=== PATIENT | female | born 1985 | race Caucasian/White ===

== ENCOUNTER 2017-07-20 12:13 | Outpatient (CLI) | payer OTHER ==
[2017-07-20] MEDS: BETAMET NA PHOS/AC(6 MG/ML) 5ML INJ IM (13:00)
[2017-07-20 14:10] LABS: ADD MAN DIFF? NO
[2017-07-20 14:13] LABS: WHITE BLOOD COUNT 8.9 10^3/ul (4.8-10.8)
[2017-07-20 14:13] LABS: BASOPHILS % 0.1 % (0.0-2.0); EOSINOPHILS % 0.3 % (0.0-7.0); HEMATOCRIT 33.3 % (37.0-47.0); HEMOGLOBIN 11.5 g/dl (12.0-16.0); LYMPHOCYTES # 1.6 10^3/ul (0.8-2.9); LYMPHOCYTES % 18.1 % (15.0-51.0); MEAN CORPUSCULAR HEMOGLOBIN 31.3 pg (29.0-33.0); MEAN CORPUSCULAR HGB CONC 34.5 g/dl (32.0-37.0); MEAN CORPUSCULAR VOLUME 90.7 fl (82.0-101.0); MONOCYTE # 0.4 10^3/ul (0.3-0.9); MONOCYTES % 4.8 % (0.0-11.0); NEUTROPHIL # 6.7 10^3/ul (1.6-7.5); NEUTROPHILS % 75.8 % (39.0-77.0); PLATELET COUNT 212 10^3/UL (140-415); RED BLOOD COUNT 3.67 10^6/ul (4.20-5.40); RED CELL DISTRIBUTION WIDTH 12.5 % (11.5-14.5)
[2017-07-20 14:25] LABS: ADD UMIC YES; UR ASCORBIC ACID 40 mg/dL (NEGATIVE); UR BACTERIA FEW /HPF (NONE SEEN); UR BILIRUBIN (Dip) NEGATIVE (NEGATIVE); UR BLOOD (Dip) NEGATIVE (NEGATIVE); UR CLARITY SLIGHTLY CLOUDY (CLEAR); UR COLOR YELLOW (YELLOW); UR GLUCOSE (Dip) NEGATIVE (NEGATIVE); UR KETONES (Dip) NEGATIVE (NEGATIVE); UR LEUKOCYTE ESTERASE (Dip) NEGATIVE Leu/ul (NEGATIVE); UR MUCUS FEW /HPF (NONE SEEN); UR NITRITE (Dip) NEGATIVE (NEGATIVE); UR RBC 2 /HPF (0-5); UR SPECIFIC GRAVITY (Dip) 1.028 (1.003-1.030); UR SQUAMOUS EPITHELIAL CELL FEW /HPF (FEW); UR TOTAL PROTEIN (Dip) 2+ mg/dl (NEGATIVE); UR UROBILINOGEN (Dip) 1+ mg/dL (NEGATIVE); UR WBC 1 /HPF (0-5)
[2017-07-20 14:38] LABS: ALANINE AMINOTRANSFERASE 23 IU/L (13-69); ALBUMIN 3.6 g/dl (3.3-4.9); ALBUMIN/GLOBULIN RATIO 1.28; ALKALINE PHOSPHATASE 53 IU/L (42-121); ANION GAP 13 (8-16); ASPARTATE AMINO TRANSFERASE 21 IU/L (15-46); BILIRUBIN,INDIRECT 0.2 mg/dl (0-1.1); BILIRUBIN,TOTAL 0.2 mg/dl (0.2-1.3); BLOOD UREA NITROGEN 7 mg/dl (7-20); CALCIUM 9.2 mg/dl (8.4-10.2); CARBON DIOXIDE 24 mmol/L (21-31); CHLORIDE 107 mmol/L (97-110); CREATININE 0.53 mg/dl (0.44-1.00); GLUCOSE 91 mg/dl (70-220); POTASSIUM 4.1 mmol/L (3.5-5.1); SODIUM 140 mmol/L (135-144); TOTAL PROTEIN 6.4 g/dl (6.1-8.1)
[2017-07-20] MEDS: INFLUENZA VIRUS VACCINE 0.5 ML (DISPENSING) IM* (16:30)
== END 2017-07-20 14:25 | disposition home or self-care (01) ==
LOC: OBT 12:13 → L-D 12:14 → OBT 18:39
DX: O13.3 Gestational [pregnancy-induced] hypertension without significant proteinuria, third trimester (principal); Z3A.30 30 weeks gestation of pregnancy
CPT/HCPCS: 76815; 76818; 80053; 81001; 85025; 90686; 96372

== ENCOUNTER 2017-07-21 13:02 | Outpatient (CLI) | payer OTHER ==
[2017-07-21] MEDS: BETAMET NA PHOS/AC(6 MG/ML) 5ML INJ IM (13:49)
== END 2017-07-21 14:20 | disposition home or self-care (01) ==
LOC: OBT 13:02 → L-D 13:03 → OBT 14:20
DX: O13.3 Gestational [pregnancy-induced] hypertension without significant proteinuria, third trimester (principal); Z3A.30 30 weeks gestation of pregnancy
CPT/HCPCS: J0702

== ENCOUNTER 2017-07-25 09:27 | Outpatient (CLI) | payer OTHER ==
[2017-07-25 10:21] LABS: ADD UMIC YES; UR ASCORBIC ACID NEGATIVE (NEGATIVE); UR BACTERIA FEW /HPF (NONE SEEN); UR BILIRUBIN (Dip) NEGATIVE (NEGATIVE); UR BLOOD (Dip) NEGATIVE (NEGATIVE); UR CLARITY SLIGHTLY CLOUDY (CLEAR); UR COLOR YELLOW (YELLOW); UR GLUCOSE (Dip) 1+ mg/dL (NEGATIVE); UR KETONES (Dip) NEGATIVE (NEGATIVE); UR LEUKOCYTE ESTERASE (Dip) NEGATIVE Leu/ul (NEGATIVE); UR NITRITE (Dip) NEGATIVE (NEGATIVE); UR RBC 1 /HPF (0-5); UR SQUAMOUS EPITHELIAL CELL FEW /HPF (FEW); UR TOTAL PROTEIN (Dip) 1+ mg/dl (NEGATIVE); UR UROBILINOGEN (Dip) NEGATIVE (NEGATIVE); UR WBC 2 /HPF (0-5)
[2017-07-25 10:38] LABS: ADD MAN DIFF? NO
[2017-07-25 10:40] LABS: WHITE BLOOD COUNT 11.4 10^3/ul (4.8-10.8)
[2017-07-25 10:41] LABS: BASOPHILS % 0.3 % (0.0-2.0); EOSINOPHILS % 0.4 % (0.0-7.0); HEMATOCRIT 33.5 % (37.0-47.0); HEMOGLOBIN 11.6 g/dl (12.0-16.0); LYMPHOCYTES % 17.5 % (15.0-51.0); MEAN CORPUSCULAR HEMOGLOBIN 31.8 pg (29.0-33.0); MEAN CORPUSCULAR HGB CONC 34.6 g/dl (32.0-37.0); MEAN CORPUSCULAR VOLUME 91.8 fl (82.0-101.0); MEAN PLATELET VOLUME 9.6 fl (7.4-10.4); MONOCYTE # 0.5 10^3/ul (0.3-0.9); MONOCYTES % 4.5 % (0.0-11.0); NEUTROPHIL # 8.6 10^3/ul (1.6-7.5); NEUTROPHILS % 75.5 % (39.0-77.0); PLATELET COUNT 210 10^3/UL (140-415); RED BLOOD COUNT 3.65 10^6/ul (4.20-5.40); RED CELL DISTRIBUTION WIDTH 12.7 % (11.5-14.5)
[2017-07-25 11:03] LABS: INR 0.99; PROTIME 13.2 Sec (11.9-14.9)
[2017-07-25 11:04] LABS: PARTIAL THROMBOPLASTIN TIME 27.6 Sec (25.0-35.0)
[2017-07-25 11:07] LABS: ALANINE AMINOTRANSFERASE 22 IU/L (13-69); ALBUMIN 3.5 g/dl (3.3-4.9); ALKALINE PHOSPHATASE 46 IU/L (42-121); ANION GAP 15 (8-16); ASPARTATE AMINO TRANSFERASE 17 IU/L (15-46); BILIRUBIN,INDIRECT 0.2 mg/dl (0-1.1); BILIRUBIN,TOTAL 0.2 mg/dl (0.2-1.3); BLOOD UREA NITROGEN 9 mg/dl (7-20); CALCIUM 9.3 mg/dl (8.4-10.2); CARBON DIOXIDE 24 mmol/L (21-31); CHLORIDE 108 mmol/L (97-110); CREATININE 0.49 mg/dl (0.44-1.00); GLUCOSE 105 mg/dl (70-220); POTASSIUM 3.8 mmol/L (3.5-5.1); SODIUM 143 mmol/L (135-144); URIC ACID 3.8 mg/dl (3.1-7.9)
== END 2017-07-25 14:50 | disposition home or self-care (01) ==
LOC: OBT 09:27 → L-D 09:27 → OBT 14:50
DX: O13.3 Gestational [pregnancy-induced] hypertension without significant proteinuria, third trimester (principal); Z3A.31 31 weeks gestation of pregnancy
CPT/HCPCS: 76818; 80053; 81001; 84560; 85025; 85384; 85610; 85730

== ENCOUNTER 2017-07-27 15:09 | Outpatient (CLI) | payer OTHER ==
[2017-07-27 16:22] LABS: URINE BLOOD (Dip) POC Trace-intact (NEGATIVE); URINE KETONES (Dip) POC 1+ (NEGATIVE); URINE LEUKOCYTE EST (Dip) POC Negative (NEGATIVE); URINE NITRITE (Dip) POC Negative (NEGATIVE); URINE TOTAL PROTEIN POC 2+ (NEGATIVE)
== END 2017-07-27 16:10 | disposition home or self-care (01) ==
LOC: OBT 15:09 → L-D 15:10 → OBT 16:10
DX: O13.3 Gestational [pregnancy-induced] hypertension without significant proteinuria, third trimester (principal); Z3A.31 31 weeks gestation of pregnancy
CPT/HCPCS: 76818; 81003

== ENCOUNTER 2017-07-29 09:09 | Outpatient (CLI) | payer OTHER ==
[2017-07-29 10:12] LABS: COLLECTION PERIOD 24 hrs
[2017-07-29 10:29] LABS: CREATININE 0.47 mg/dl (0.44-1.00)
[2017-07-29 10:53] LABS: COLLECTION PERIOD 24 hrs; CREATININE CLEARANCE 274.4 mls/min (84.0-162.0); SCRET 0.47 mg/dl (0.44-1.00); VOLUME 3000 ml/24hrs; VOLUME 3000 mls
[2017-07-29] MEDS: LACTATED RINGER'S 1,000 ML IV (11:14)
[2017-07-29] MEDS: TERBUTALINE 1 MG/ML INJ SC (11:14)
== END 2017-07-29 12:04 | disposition home or self-care (01) ==
LOC: OBT 09:09 → L-D 09:09 → OBT 12:04
DX: O16.3 Unspecified maternal hypertension, third trimester (principal); Z3A.31 31 weeks gestation of pregnancy
CPT/HCPCS: 36415; 76817; 76818; 82565; 82575; 84156

== ENCOUNTER 2017-09-06 08:47 | Inpatient (IN) | payer OTHER ==
[2017-09-06 09:58] LABS: ADD MAN DIFF? NO
[2017-09-06] MEDS ORDERED: BUTORPHANOL 2 MG INJ IV (10:00)
[2017-09-06] MEDS ORDERED: LIDOCAINE 1% (MPF) 30 ML INJ INJ (10:00)
[2017-09-06] MEDS ORDERED: MISOPROSTOL 200 MCG TAB PR ×3 (10:00→22:00)
[2017-09-06] MEDS ORDERED: CARBOPROST 250 MCG INJ IM ×3 (10:00→22:00)
[2017-09-06] MEDS ORDERED: METHYLERGONOVINE 0.2 MG INJ IM ×3 (10:00→22:00)
[2017-09-06] MEDS ORDERED: OXYTOCIN 30 UNITS/LR 500 ML IV ×5 (10:00→22:00)
[2017-09-06 10:06] LABS: BASOPHILS % 0.2 % (0.0-2.0); EOSINOPHILS % 0.4 % (0.0-7.0); HEMOGLOBIN 11.9 g/dl (12.0-16.0); LYMPHOCYTES # 1.6 10^3/ul (0.8-2.9); LYMPHOCYTES % 18.5 % (15.0-51.0); MEAN CORPUSCULAR HEMOGLOBIN 30.8 pg (29.0-33.0); MEAN CORPUSCULAR VOLUME 90.7 fl (82.0-101.0); MEAN PLATELET VOLUME 10.4 fl (7.4-10.4); MONOCYTE # 0.5 10^3/ul (0.3-0.9); MONOCYTES % 5.4 % (0.0-11.0); NEUTROPHIL # 6.3 10^3/ul (1.6-7.5); NEUTROPHILS % 74.4 % (39.0-77.0); PLATELET COUNT 223 10^3/UL (140-415); RED BLOOD COUNT 3.86 10^6/ul (4.20-5.40); RED CELL DISTRIBUTION WIDTH 12.7 % (11.5-14.5)
[2017-09-06 10:06] LABS: WHITE BLOOD COUNT 8.5 10^3/ul (4.8-10.8)
[2017-09-06] MEDS: LACTATED RINGER'S 1,000 ML IV ×4 (10:06→23:38)
[2017-09-06] MEDS: AMPICILLIN 2 GM/NS (PMX) 100 ML IV (10:14)
[2017-09-06 10:32] LABS: ALANINE AMINOTRANSFERASE 22 IU/L (13-69); ALBUMIN 3.3 g/dl (3.3-4.9); ALBUMIN/GLOBULIN RATIO 1.13; ALKALINE PHOSPHATASE 70 IU/L (42-121); ANION GAP 12 (8-16); ASPARTATE AMINO TRANSFERASE 24 IU/L (15-46); BILIRUBIN,INDIRECT 0.4 mg/dl (0-1.1); BILIRUBIN,TOTAL 0.4 mg/dl (0.2-1.3); BLOOD UREA NITROGEN 7 mg/dl (7-20); CALCIUM 9.6 mg/dl (8.4-10.2); CARBON DIOXIDE 23 mmol/L (21-31); CHLORIDE 108 mmol/L (97-110); CREATININE 0.49 mg/dl (0.44-1.00); GLUCOSE 90 mg/dl (70-220); SODIUM 139 mmol/L (135-144); TOTAL PROTEIN 6.2 g/dl (6.1-8.1); URIC ACID 5.1 mg/dl (3.1-7.9)
[2017-09-06 10:41] LABS: INR 0.98; PROTIME 13.1 Sec (11.9-14.9)
[2017-09-06 10:42] LABS: PARTIAL THROMBOPLASTIN TIME 27.4 Sec (25.0-35.0)
[2017-09-06 11:03] LABS: ADD UMIC YES; UR ASCORBIC ACID NEGATIVE (NEGATIVE); UR BILIRUBIN (Dip) NEGATIVE (NEGATIVE); UR BLOOD (Dip) NEGATIVE (NEGATIVE); UR CLARITY SLIGHTLY CLOUDY (CLEAR); UR COLOR YELLOW (YELLOW); UR GLUCOSE (Dip) NEGATIVE (NEGATIVE); UR KETONES (Dip) NEGATIVE (NEGATIVE); UR LEUKOCYTE ESTERASE (Dip) NEGATIVE Leu/ul (NEGATIVE); UR MUCUS FEW /HPF (NONE SEEN); UR NITRITE (Dip) NEGATIVE (NEGATIVE); UR RBC 1 /HPF (0-5); UR SPECIFIC GRAVITY (Dip) 1.021 (1.003-1.030); UR SQUAMOUS EPITHELIAL CELL FEW /HPF (FEW); UR TOTAL PROTEIN (Dip) 2+ mg/dl (NEGATIVE); UR UROBILINOGEN (Dip) NEGATIVE (NEGATIVE); UR WBC 1 /HPF (0-5)
[2017-09-06 11:35] LABS: HEPATITIS B SURFACE ANTIGEN NEGATIVE (NEGATIVE)
[2017-09-06] MEDS: AMPICILLIN 1 GM/NS (PMX) 50 ML IV ×3 (14:00→18:00)
[2017-09-06] MEDS ORDERED: BUPIVACAINE 0.75%/DEXT (SPINAL) 2 ML INJ (14:44)
[2017-09-06] MEDS ORDERED: morphine SULFATE/PF (10 MG/10 ML) INJ (14:45)
[2017-09-06] MEDS ORDERED: DEXAMETHASONE 4 MG/ML 1 ML INJ (14:51)
[2017-09-06] MEDS ORDERED: ONDANSETRON 4 MG INJ (14:52)
[2017-09-06 15:05] LABS: RAPID PLASMA REAGIN NONREACTIVE (NR)
[2017-09-06] MEDS ORDERED: PHENYLephrine (100 MCG/ML) 5ML SYG (16:18)
[2017-09-06] MEDS: CEFAZOLIN 2 GM/50 ML (PMX) 50 ML IV ×3 (16:20→22:12)
[2017-09-06] MEDS ORDERED: ZOLPIDEM 5 MG TAB PO (17:30)
[2017-09-06] MEDS ORDERED: DIPHENHYDRAMINE 50 MG INJ IV (17:30)
[2017-09-06] MEDS ORDERED: NALOXONE (0.4 MG/ML) INJ IV (17:30)
[2017-09-06] MEDS ORDERED: HYDROmorphONE 0.5 MG/0.5 ML SYG IV ×2 (17:30)
[2017-09-06] MEDS ORDERED: ONDANSETRON 4 MG INJ IV (17:30)
[2017-09-06] MEDS: KETOROLAC 30 MG INJ IV (18:09)
[2017-09-06] MEDS: OXYTOCIN 30 UNITS/LR 500 ML IV (18:39)
[2017-09-06] MEDS ORDERED: NA PHOSPHATE/BIPHOS 133 ML ENEMA PR (22:00)
[2017-09-06] MEDS ORDERED: LANOLIN 7 GM TUBE TOP (22:00)
[2017-09-06] MEDS: LABETALOL 100 MG TAB PO (22:13)
[2017-09-06] MEDS: CLINDAMYCIN 300 MG CAP PO (23:39)
[2017-09-07] MEDS: CEFAZOLIN 2 GM/50 ML (PMX) 50 ML IV ×2 (05:08→13:32)
[2017-09-07] MEDS: CLINDAMYCIN 300 MG CAP PO ×4 (05:08→23:33)
[2017-09-07] MEDS: KETOROLAC 30 MG INJ IV (06:28)
[2017-09-07] MEDS: LABETALOL 100 MG TAB PO ×2 (08:49→21:00)
[2017-09-07] MEDS: SENNA/DOCUSATE NA (8.6MG/50MG) TAB PO ×2 (08:49→20:58)
[2017-09-07] MEDS: LACTATED RINGER'S 1,000 ML IV ×2 (08:50→21:41)
[2017-09-07 11:08] LABS: ADD MAN DIFF? NO
[2017-09-07 11:12] LABS: WHITE BLOOD COUNT 11.4 10^3/ul (4.8-10.8)
[2017-09-07 11:12] LABS: BASOPHILS % 0.2 % (0.0-2.0); EOSINOPHILS % 0.1 % (0.0-7.0); HEMATOCRIT 31.3 % (37.0-47.0); HEMOGLOBIN 10.6 g/dl (12.0-16.0); LYMPHOCYTES # 1.9 10^3/ul (0.8-2.9); LYMPHOCYTES % 16.9 % (15.0-51.0); MEAN CORPUSCULAR HEMOGLOBIN 31.5 pg (29.0-33.0); MEAN CORPUSCULAR HGB CONC 33.9 g/dl (32.0-37.0); MEAN CORPUSCULAR VOLUME 92.9 fl (82.0-101.0); MEAN PLATELET VOLUME 9.9 fl (7.4-10.4); MONOCYTE # 0.8 10^3/ul (0.3-0.9); MONOCYTES % 6.6 % (0.0-11.0); NEUTROPHIL # 8.7 10^3/ul (1.6-7.5); NEUTROPHILS % 75.7 % (39.0-77.0); PLATELET COUNT 191 10^3/UL (140-415); RED BLOOD COUNT 3.37 10^6/ul (4.20-5.40); RED CELL DISTRIBUTION WIDTH 12.6 % (11.5-14.5)
[2017-09-07] MEDS: OXYCODONE/ACETAMINOPHEN (5/325) TAB PO ×2 (16:29→20:58)
[2017-09-07] MEDS: IBUPROFEN 800 MG TAB PO (23:26)
[2017-09-08] MEDS: OXYCODONE/ACETAMINOPHEN (5/325) TAB PO ×4 (02:46→21:51)
[2017-09-08] MEDS: LACTATED RINGER'S 1,000 ML IV (05:41)
[2017-09-08] MEDS: BISACODYL 10 MG SUPP PR ×2 (05:49)
[2017-09-08] MEDS: CLINDAMYCIN 300 MG CAP PO ×4 (05:49→23:27)
[2017-09-08] MEDS: IBUPROFEN 800 MG TAB PO ×3 (05:49→21:51)
[2017-09-08] MEDS: SENNA/DOCUSATE NA (8.6MG/50MG) TAB PO ×2 (08:20→21:51)
[2017-09-08] MEDS: HYDROCODONE/APAP (5/325) TAB PO (12:05)
[2017-09-09] MEDS: IBUPROFEN 800 MG TAB PO (05:20)
[2017-09-09] MEDS: CLINDAMYCIN 300 MG CAP PO ×2 (05:20→11:38)
[2017-09-09] MEDS: SENNA/DOCUSATE NA (8.6MG/50MG) TAB PO (09:08)
[2017-09-09] MEDS: MEASLES,MUMPS,RUBELLA VACCINE INJ SC* (09:09)
[2017-09-09] MEDS: DIPHTH/TET/ACEL PERTUSS (ADULT) 0.5 ML VIAL IM* (11:38)
== END 2017-09-09 13:00 | disposition home or self-care (01) | DRG 765 ==
LOC: L-D 08:47 → PP1 20:56
PROC: 10D00Z1 Extraction of Products of Conception, Low, Open Approach (ICD-10-PCS; principal; 2017-09-06 08:00)
PROC: 3E033VJ Introduction of Other Hormone into Peripheral Vein, Percutaneous Approach (ICD-10-PCS; 2017-09-06 08:00)
DX: O13.4 Gestational [pregnancy-induced] hypertension without significant proteinuria, complicating childbirth (principal); Z68.42 Body mass index [BMI] 45.0-49.9, adult; O99.214 Obesity complicating childbirth; E66.01 Morbid (severe) obesity due to excess calories; O32.1XX0 Maternal care for breech presentation, not applicable or unspecified; Z3A.37 37 weeks gestation of pregnancy; Z37.0 Single live birth
CPT/HCPCS: 76815; 80053; 81001; 84560; 85025; 85610; 85730; 86592; 86850; 86900; 86901; 87340; 90715; 94760; 99464

== ENCOUNTER 2017-11-25 11:59 | Emergency (ER) | payer OTHER ==
[2017-11-25] MEDS ORDERED: ONDANSETRON (ODT) 4 MG TAB ODT (13:11)
[2017-11-25] MEDS: ONDANSETRON (ODT) 4 MG TAB ODT (13:14)
== END 2017-11-25 13:20 | disposition home or self-care (01) ==
LOC: FTE 11:59
DX: H81.11 Benign paroxysmal vertigo, right ear (principal); I10 Essential (primary) hypertension; R11.0 Nausea
CPT/HCPCS: 99283; Z7502

== ENCOUNTER 2017-11-26 09:30 | Emergency (ER) | payer OTHER ==
[2017-11-26 10:51] LABS: ADD MAN DIFF? NO
[2017-11-26 10:53] LABS: BASOPHILS % 0.3 % (0.0-2.0); EOSINOPHILS % 0.4 % (0.0-7.0); HEMATOCRIT 43.8 % (37.0-47.0); HEMOGLOBIN 14.8 g/dl (12.0-16.0); LYMPHOCYTES # 2.5 10^3/ul (0.8-2.9); LYMPHOCYTES % 34.1 % (15.0-51.0); MEAN CORPUSCULAR HEMOGLOBIN 30.2 pg (29.0-33.0); MEAN CORPUSCULAR HGB CONC 33.8 g/dl (32.0-37.0); MEAN CORPUSCULAR VOLUME 89.4 fl (82.0-101.0); MEAN PLATELET VOLUME 9.5 fl (7.4-10.4); MONOCYTE # 0.4 10^3/ul (0.3-0.9); MONOCYTES % 5.4 % (0.0-11.0); NEUTROPHIL # 4.4 10^3/ul (1.6-7.5); NEUTROPHILS % 59.7 % (39.0-77.0); PLATELET COUNT 274 10^3/UL (140-415); RED CELL DISTRIBUTION WIDTH 12.5 % (11.5-14.5)
[2017-11-26 10:53] LABS: WHITE BLOOD COUNT 7.4 10^3/ul (4.8-10.8)
[2017-11-26 11:07] LABS: ADD UMIC YES; UR ASCORBIC ACID NEGATIVE (NEGATIVE); UR BACTERIA FEW /HPF (NONE SEEN); UR BILIRUBIN (Dip) NEGATIVE (NEGATIVE); UR BLOOD (Dip) NEGATIVE (NEGATIVE); UR CLARITY CLOUDY (CLEAR); UR COLOR YELLOW (YELLOW); UR GLUCOSE (Dip) NEGATIVE (NEGATIVE); UR KETONES (Dip) NEGATIVE (NEGATIVE); UR LEUKOCYTE ESTERASE (Dip) 1+ Leu/ul (NEGATIVE); UR MUCUS FEW /HPF (NONE SEEN); UR NITRITE (Dip) NEGATIVE (NEGATIVE); UR RBC 3 /HPF (0-5); UR SPECIFIC GRAVITY (Dip) 1.028 (1.003-1.030); UR SQUAMOUS EPITHELIAL CELL MODERATE /HPF (FEW); UR TOTAL PROTEIN (Dip) 2+ mg/dl (NEGATIVE); UR UROBILINOGEN (Dip) NEGATIVE (NEGATIVE); UR WBC 7 /HPF (0-5)
[2017-11-26 11:16] LABS: ALANINE AMINOTRANSFERASE 24 IU/L (13-69); ALBUMIN 4.6 g/dl (3.3-4.9); ALBUMIN/GLOBULIN RATIO 1.48; ALKALINE PHOSPHATASE 54 IU/L (42-121); ANION GAP 12 (8-16); ASPARTATE AMINO TRANSFERASE 21 IU/L (15-46); BILIRUBIN,INDIRECT 1.2 mg/dl (0-1.1); BILIRUBIN,TOTAL 1.2 mg/dl (0.2-1.3); BLOOD UREA NITROGEN 10 mg/dl (7-20); CALCIUM 9.3 mg/dl (8.4-10.2); CARBON DIOXIDE 24 mmol/L (21-31); CHLORIDE 110 mmol/L (97-110); CREATININE 0.76 mg/dl (0.44-1.00); GLUCOSE 104 mg/dl (70-220); POTASSIUM 4.2 mmol/L (3.5-5.1); SODIUM 142 mmol/L (135-144); TOTAL PROTEIN 7.7 g/dl (6.1-8.1)
== END 2017-11-26 12:44 | disposition home or self-care (01) ==
LOC: FTE 09:30
DX: N30.00 Acute cystitis without hematuria (principal)
CPT/HCPCS: 36415; 70450; 80053; 81001; 81025; 85025; 99284-25

== ENCOUNTER 2018-03-02 14:16 | Emergency (ER) | payer OTHER | END 2018-03-02 15:11 | disposition home or self-care (01) | LOC: FTE 14:16 | DX: H81.10 Benign paroxysmal vertigo, unspecified ear (principal) | CPT/HCPCS: 99283; Z7502 ==

== ENCOUNTER 2018-04-28 12:18 | Emergency (ER) | payer OTHER ==
[2018-04-28] MEDS: ACETAMINOPHEN 500 MG TAB PO (12:58)
== END 2018-04-28 14:56 | disposition home or self-care (01) ==
LOC: FTE 14:56
DX: H93.11 Tinnitus, right ear (principal); H61.21 Impacted cerumen, right ear
CPT/HCPCS: 69209; 99283-25

== ENCOUNTER 2018-06-03 15:21 | Emergency (ER) | payer OTHER | END 2018-06-03 17:46 | disposition home or self-care (01) | LOC: E/R 17:46 | DX: R07.89 Other chest pain (principal) | CPT/HCPCS: 93005; 99283-25; Z7502 ==

== ENCOUNTER 2018-09-13 20:47 | Emergency (ER) | payer OTHER | END 2018-09-13 22:49 | disposition home or self-care (01) | LOC: FTE 20:47 | DX: J02.9 Acute pharyngitis, unspecified (principal) | CPT/HCPCS: 99282; Z7502 ==